=== PATIENT | male | born 1970 | race Caucasian/White ===

== ENCOUNTER 2022-06-15 07:58 | Emergency (ER) | payer MEDICAID, SELFPAY ==
[2022-06-15 08:02] VITALS: BP 167/99; PULSE 97; RESP 20; TEMP 36.4; O2SAT 96; BMI 45.0
[2022-06-15 08:13] LABS: Glucose Point of Care 347 mg/dL (70-110)
--- NOTE | 2022-06-15 08:17 | ED_ITS ---
HPI - General Adult General: Chief complaint: General Medical Stated complaint: High Blood Sugar Time Seen by Provider: 06/15/22 08:00 Source: patient Mode of arrival: ambulatory Limitations: no limitations History of Present Illness: 51-year-old male states that over the last month he has noticed he has been having a lot more fatigue. He states anytime he works outside he gets very tired he is also been having excessive thirst along with excessive urination. States that his brother brought over his glucometer last night his blood sugar was in the 500s. He has no known history of diabetes but is concerned he may be a diabetic. Denies any pain currently denies any vomiting or diarrhea. Associated symptoms: Deny chest pain, dyspnea, headache(s), nausea, rash or vomiting Review of Systems Const: Reports: change in appetite and fatigue Eyes: Denies: blurry vision or eye discomfort ENMT: Denies: throat pain or dental pain Card: Denies: chest pain Resp: Denies: dyspnea GI: Denies: abdominal pain, nausea, vomiting or diarrhea : Denies: dysuria Musc: Denies: neck pain or back pain Skin/Breast: Denies: rash Neuro: Denies: headache(s) Psych: Denies: depression Endo: Reports: polyuria and polydipsia Chris/Lymph: Denies: easy bruising All/Imm: Denies: urticaria PFSH ED PFSH: Medical History Constipation due to slow transit COPD (chronic obstructive pulmonary disease) Disorder of ligament, right hand Encounter for smoking cessation counseling Former heavy cigarette smoker (20-39 per day) Quit 02/25/2022 at age 51 Hiatal hernia with gastroesophageal reflux History of COVID COVID June 2021 HTN (hypertension) Obesity (BMI 35.0-39.9 without comorbidity) Psoriasis and similar disorder Social History Smoking and tobacco status: current every day smoker Alcohol intake: current Alcohol intake frequency: holidays/special occasions only Marital status: Number of children: 7 Number of grandchildren: 7 Physical Exam Const: COMMON NORMALS: no acute distress, patient oriented x3 and healthy appearing HENMT: COMMON NORMALS: normocephalic and atraumatic HEAD & SCALP: norm ocephalic and atraumatic Eye: COMMON NORMALS: Equal, round and reactive pupils present and EOMs intact bilaterally PUPIL: Yes Equal, round and reactive pupils present Neck/C-Spine: COMMON NORMALS: full ROM and supple Chest: COMMONS NORMALS: normal inspection of the chest and normal palpation of entire chest wall Resp: COMMON NORMALS: normal respiratory effort, No retractions, No use of accessory muscles and clear to auscultation bilaterally AUSCULTATION: clear to auscultation bilaterally Cardio: COMMON NORMALS: regular rate, regular rhythm and No murmurs present (Cardio) RATE: regular rate RHYTHM: regular rhythm GI: COMMON NORMALS: Normal to inspection, nondistended, normoactive bowel sounds present, Soft to palpation, non-tender and no masses PALPATION: Yes Soft to palpation Extremity: COMMON NORMALS: normal to inspection and full ROM Neuro: COMMON NORMALS: patient oriented x3, moves all extremities and no focal motor deficits Psych: COMMON NORMALS: mental status grossly normal, Normal thought process present and cooperative THOUGHT PROCESS: Normal thought process present Skin: COMMON NORMALS: no rashes or lesions noted and no wounds GENERAL SKIN EXAM: no rashes or lesions noted Course Vital Signs: Vital signs: Vital Signs Temperature 97.6 F 06/15/22 08:02 Pulse Rate 88 06/15/22 08:25 Respiratory Rate 16 06/15/22 08:25 Blood Pressure 171/98 06/15/22 08:25 Pulse Oximetry 95 06/15/22 08:25 Oxygen Delivery Me thod 06/15/22 08:25 MDM - General Adult Medical Decision Making Patient presents with hyperglycemia likely an undiagnosed diabetic his hemoglobin A1c was elevated as well as blood sugars improved here after IV fluids and insulin we will start him on metformin he is to follow-up with PCP in 3 to 5 days and return if worsening he understands agrees to plan. Lab Data : 06/15/22 08:22 06/15/22 08:22 Laboratory Results WBC 9.0 10^3/uL (4.0-10.0) 06/15/22 08:22 RBC 4.48 10^6/uL (4.1-5.3) 06/15/22 08:22 Hgb 14.0 g/dL (11.7-16.6) 06/15/22 08:22 Hct 40.9 % (42.0-52.0) L 06/15/22 08: MCV 91.3 fl (80-94) 06/15/22 08: MCH 31.3 pg (28.0-34.0) 06/15/22 08: MCHC 34.2 g/dL (30.0-36.0) 06/15/22 08: RDW 13.6 % (12.1-15.1) 06/15/22 08: Plt Count 268 10^3/cmm (130-400) 06/15/22 08: MPV 11.6 fL (7.4-10.4) H 06/15/22 08: Neut % (Auto) 60.0 % 06/15/22 08: Lymph % (Auto) 33.8 % 06/15/22 08: Haines % (Auto) 4.4 % 06/15/22 08: Eos % (Auto) 0.7 % 06/15/22 08: Baso % (Auto) 0.3 % 06/15/22 08: Neut # (Auto) 5.42 10^3/uL (1.8-7.7) 06/15/22 08: Lymph # (Auto) 3.1 10^3/uL (0.8-4.8) 06/15/22 08: Haines # (Auto) 0.4 10^3/uL (0.2-0.9) 06/15/22 08: Eos # (Auto) 0.1 10^3/uL (0.0-0.8) 06/15/22 08: Baso # (Auto) 0.0 10^3/uL (0.0-0.1) 06/15/22 08: Nucleated RBC % (auto) 0.2 % 06/15/22 08: Nucleated RBCs # 0.0 /100WBC 06/15/22 08: Sodium 128 mmol/L (136-145) L 06/15/22 08: Potassium 4.1 mmol/L (3.5-5.1) 06/15/22 08: Chloride 93 mmol/L (98-107) L 06/15/22 08: Carbon Dioxide 17 mmol/L (22-29) L 06/15/22 08:22 Anion Gap 22.1 (5-19) H 06/15/22 08:22 BUN 11 mg/dL (6-20) 06/15/22 08:22 Creatinine 0.6 mg/dL (0.7-1.2) L 06/15/22 08:22 GFR Calculation 142.6 mL/min (90-130) H 06/15/22 08:22 Glucose 329 mg/dL (65-115) H 06/15/22 08:22 POC Glucose 319 mg/dL (70-110) H 06/15/22 09:36 Estimat Average Glucose 246 06/15/22 08:22 Hemoglobin A1c 10.2 % (4.0-6.0) H 06/15/22 08:22 Calculated Osmolality 278 mOsm/kg (285-295) L 06/15/22 08:22 Calcium 9.1 mg/dL (8.5-10.5) 06/15/22 08:22 Total Bilirubin 0.5 mg/dL (0.15-1.2) 06/15/22 08:22 AST 5 U/L (0-40) 06/15/22 08:22 ALT < 5 U/L (0-41) 06/15/22 08:22 Alkaline Phosphatase 98 U/L (40-130) 06/15/22 08:22 Total Protein 7.7 g/dL (6.6-8.7) 06/15/22 08:22 Albumin 4.4 g/dL (3.5-5.2) 06/15/22 08:22 Globulin 3.3 g/dL (1.3-4.6) 06/15/22 08:22 Discharge Plan Discharge Patient Disposition: Home Clinical Impression: Hyperglycemia Condition: Stable Prescriptions: New ondansetron 4 mg tablet,disintegrating 4 mg PO Q6H PRN (Reason: nausea and vomiting) Qty: 14 0RF metformin 1,000 mg tablet 500 mg PO BID Qty: 60 0RF No Action pantoprazole 40 mg tablet,delayed release (DR/EC) 40 mg PO DAILY PRN (Reason: acid reflux) Qty: 30 1RF lung cleanse capsule 2 cap PO DAILY triamcinolone acetonide 0.1 % cream 1 applic topical DAILY Qty: 15 0RF doxycycline hyclate 100 mg tablet 100 mg PO BID Qty: 30 1RF bupropion HCl 150 mg tablet sustained-release 12 hr 150 mg PO QAM Qty: 30 1RF Discharge Orders: Discharge ED (Routine); Ordered 06/15/22 Ordered By: Jocelyn Antony Referrals: Rubens aGndhi MD [Primary Care Provider] - 1-3 days Discharge Diet: Advance as tolerated Discharge Activity: Resume usual activity Patient Instructions: Diabetic Hyperglycemia (ED) Coding Level of Care Code ED Patient Clerical Assistant for Chg Fwd Exam Comprehensive
[2022-06-15] MEDS: sodium chloride 0.9% 1,000 ML 999 ML IV ×2 (08:18→10:16)
[2022-06-15] MEDS: insulin regular-human 100 units/1 mL 5 UNIT IVP (08:20)
[2022-06-15 08:25] VITALS: BP 171/98; PULSE 88; RESP 16; O2SAT 95
[2022-06-15 09:05] LABS: Glucose Point of Care 308 mg/dL (70-110)
[2022-06-15 09:26] LABS: Basophils % 0.3 %; Eosinophils # 0.1 10^3/uL (0.0-0.8); Eosinophils % 0.7 %; Hematocrit 40.9 % (42.0-52.0); Lymphocytes # 3.1 10^3/uL (0.8-4.8); Lymphocytes % 33.8 %; Mean Corpuscular HGB Conc 34.2 g/dL (30.0-36.0); Mean Corpuscular Hemoglobin 31.3 pg (28.0-34.0); Mean Corpuscular Volume 91.3 fl (80-94); Mean Platelet Volume 11.6 fL (7.4-10.4); Monocytes # 0.4 10^3/uL (0.2-0.9); Monocytes % 4.4 %; Neutrophils # 5.42 10^3/uL (1.8-7.7); Nucleated Red Blood Cells % 0.2 %; Red Blood Count 4.48 10^6/uL (4.1-5.3); Red Cell Distribution Width 13.6 % (12.1-15.1)
[2022-06-15 09:28] LABS: Platelet Count 268 10^3/cmm (130-400)
[2022-06-15 09:36] VITALS: BP 151/95; PULSE 75; RESP 16; O2SAT 93
[2022-06-15 09:39] LABS: Glucose Point of Care 319 mg/dL (70-110)
[2022-06-15 09:40] LABS: Albumin Level 4.4 g/dL (3.5-5.2); Anion Gap 22.1 (5-19); Carbon Dioxide 17 mmol/L (22-29); Chloride 93 mmol/L (98-107); Globulin 3.3 g/dL (1.3-4.6); Glomerular Filtration Rate 142.6 mL/min (90-130); Glucose 329 mg/dL (65-115); Osmolality Calculated 278 mOsm/kg (285-295); Potassium 4.1 mmol/L (3.5-5.1); Total Bilirubin 0.5 mg/dL (0.15-1.2); Total Protein 7.7 g/dL (6.6-8.7)
[2022-06-15 09:41] LABS: Alkaline Phosphatase 98 U/L (40-130); Blood Urea Nitrogen 11 mg/dL (6-20); Calcium 9.1 mg/dL (8.5-10.5)
[2022-06-15 09:42] LABS: Sodium 128 mmol/L (136-145)
[2022-06-15 09:52] LABS: Alanine Aminotransferase < 5 U/L (0-41); Aspartate Amino Transferase 5 U/L (0-40)
[2022-06-15 10:02] LABS: Estmated Average Glucose 246; Hemoglobin A1C 10.2 % (4.0-6.0)
[2022-06-15 10:51] VITALS: BP 158/99; PULSE 75; RESP 16; O2SAT 94
[2022-06-15 11:40] VITALS: BP 153/95; PULSE 69; RESP 16; O2SAT 95
== END 2022-06-15 11:30 | disposition home or self-care (01) ==
PROVIDERS: Emergency Provider Emergency Medicine; PCP Family Medicine Adult Medicine
DX: R73.9 Hyperglycemia, unspecified (principal); J44.9 Chronic obstructive pulmonary disease, unspecified; I10 Essential (primary) hypertension; F17.210 Nicotine dependence, cigarettes, uncomplicated
CPT/HCPCS: 36416; 80053; 82962; 83036; 85025; 96361; 96374; 99284; J1815; J7030

== ENCOUNTER → 2022-08-31 07:12 | Outpatient (BNVA) | payer MEDICAID, SELFPAY | PROVIDERS: PCP Family Medicine Adult Medicine; Visit Provider Student in an Organized Health Care Education/Training Program | DX: M79.641 Pain in right hand (principal); Z71.6 Tobacco abuse counseling; Z87.891 Personal history of nicotine dependence | CPT/HCPCS: 73130 ==

== ENCOUNTER → 2023-12-08 11:38 | Outpatient (BNVA) | payer MEDICAID, SELFPAY | PROVIDERS: PCP Family Medicine Adult Medicine; Visit Provider Family Medicine Adult Medicine | DX: E11.69 Type 2 diabetes mellitus with other specified complication (principal); I10 Essential (primary) hypertension; E66.9 Obesity, unspecified | CPT/HCPCS: 80053; 80061; 83036; 83721; 84443; 85025 ==

== ENCOUNTER → 2024-08-23 14:10 | Outpatient (BNVA) | payer MEDICAID, SELFPAY | PROVIDERS: PCP Family Medicine; Visit Provider Family Medicine | DX: Z12.5 Encounter for screening for malignant neoplasm of prostate (principal); E11.69 Type 2 diabetes mellitus with other specified complication; E66.9 Obesity, unspecified; I10 Essential (primary) hypertension | CPT/HCPCS: 80053; 80061; 83036; 83721; 84153 ==

== ENCOUNTER 2024-09-06 09:36 | Outpatient (CLI) | payer MEDICAID, SELFPAY ==
--- NOTE | 2024-09-06 10:00 | CT_ITS ---
WS: [id number] LDCT LUNG CANCER SCREENING HISTORY: Screening TECHNIQUE: Axial imaging performed from the apices to 1 cm below the costophrenic angles. Coronal and sagittal reformats are submitted with axial MIP series. All CT scans at [facility] use at least one of these dose optimization techniques: automated exposure control; mA and/or kV adjustment per patient size (includes targeted exams where dose is matched to clinical indication); or iterativ e reconstruction. DLP: 222.49 mGy.cm DIvol: Mean CTDIvol: 5.70 (mGy) COMPARISON: None available. Diagnostic quality: Mild breathing motion artifact. Lungs: Mild pulmonary hyperexpansion. There are a few calcified nodules at the RIGHT apex. There is a n additional well-circumscribed 9 mm noncalcified mass in the RIGHT upper lobe which may be a mildly dilated vessel due to its configuration. No additional masses. No endobronchial lesions. Heart: Normal size heart with no pericardial effusion.. Other findings: Calcified subcarinal lymph node. No adenopathy. Mild atherosclerosis aorta. Liver asaf ears enlarged with diffuse hepatic steatosis. The entire liver is not included. Mild LEFT adrenal hyp erplasia. CT/CT lung screening [id number] IMPRESSION: LUNG-RADS: 4A-Probably Suspicious FOLLOW UP: 6 Month LDCT OTHER FINDINGS (S MODIFIER): None.
== END 2024-09-06 09:37 | disposition home or self-care (01) ==
LOC: RAD 09:37
PROVIDERS: PCP Family Medicine; Visit Provider Family Medicine
DX: Z12.2 Encounter for screening for malignant neoplasm of respiratory organs (principal); F17.219 Nicotine dependence, cigarettes, with unspecified nicotine-induced disorders; R91.8 Other nonspecific abnormal finding of lung field; R16.0 Hepatomegaly, not elsewhere classified; K76.0 Fatty (change of) liver, not elsewhere classified
CPT/HCPCS: 71271

== ENCOUNTER → 2024-11-16 11:23 | Outpatient (BNVA) | payer OTHER, SELFPAY | PROVIDERS: PCP Family Medicine; Visit Provider Family Medicine | DX: E78.2 Mixed hyperlipidemia (principal); E11.69 Type 2 diabetes mellitus with other specified complication; E66.9 Obesity, unspecified | CPT/HCPCS: 80053; 80061; 83036 ==

== ENCOUNTER 2025-03-27 10:32 | Outpatient (CLI) | payer OTHER, SELFPAY ==
--- NOTE | 2025-03-27 11:00 | CT_ITS ---
WS: [id number] CT chest wo con [id number] HISTORY: LUNGRADS 4. 6 month f/u TECHNIQUE: Axial imaging performed through the thorax. Coronal and sagittal reformats are submitted. All CT scans at [facility] use at least one of these dose optimization techniques: automated exposure control; mA and/or kV adjustment per patient size (includes targeted exams where dose is matched to clinical indication); or iterative reconstruction. CONTRAST: None DLP: 783.02 mGy.cm COMPARISON: 09/06/2024 Lungs and central airway: Lungs are slightly hyperexpanded. Reidentified is a well-circumscribed nodule in the RIGHT upper lobe measuring 9 x 9 mm. This nodule has not increased in size since 09/06/2024. No new nodule or mass. No pneumonia. Pleura: Normal. No pleural effusion. Heart and pericardium: Normal size heart with no pericardial effusion. Mediastinum and shilpa: There are a few benign calcified mediastinal and hilar lymph nodes. No pathologically enlarged nodes. Vessels: Normal size aortic and pulmonary artery. No coronary artery calcifications. Chest wall and lower neck: No soft tissue masses. Upper abdomen: Marked hepatic steatosis. Liver is enlarged but incompletely visualized on this exam. Spleen contains granulomata. No adrenal mass. Osseous structures: No destructive process. CT/CT chest wo con [id number] IMPRESSION: 1. No increase in size of the noncalcified well-circumscribed nodule in the RI GHT upper lobe now measuring 9 x 9 mm. Recommend continued surveillance by CT o r PET/CT. Recommend follow-up chest CT in 6 months. 2. Mild emphysema. 3. No adenopathy. 4. Hepatic steatosis.
== END 2025-03-27 10:33 | disposition home or self-care (01) ==
PROVIDERS: PCP Family Medicine; Visit Provider Family Medicine
DX: R91.1 Solitary pulmonary nodule (principal); J43.9 Emphysema, unspecified; K76.0 Fatty (change of) liver, not elsewhere classified; R59.0 Localized enlarged lymph nodes; R16.0 Hepatomegaly, not elsewhere classified; D73.89 Other diseases of spleen
CPT/HCPCS: 71250

== ENCOUNTER → 2025-07-02 15:51 | Outpatient (BNVA) | payer OTHER, SELFPAY | PROVIDERS: PCP Family Medicine; Visit Provider Family Medicine | DX: E11.69 Type 2 diabetes mellitus with other specified complication (principal); E66.9 Obesity, unspecified | CPT/HCPCS: 80053; 83036 ==